=== PATIENT | male | born 1960 | race Caucasian/White ===

== ENCOUNTER → 2018-03-04 | Outpatient (CLI) | payer OTHER | LOC: M.RAD 11:33 | DX: M79.671 Pain in right foot (principal) ==

== ENCOUNTER → 2018-03-10 | Outpatient (CLI) | payer OTHER | LOC: M.ULTRA 15:00 | DX: R68.84 Jaw pain (principal); R22.0 Localized swelling, mass and lump, head ==

== ENCOUNTER → 2018-03-14 | Outpatient (CLI) | payer OTHER | LOC: M.CT 10:30 | DX: R59.9 Enlarged lymph nodes, unspecified (principal) ==

== ENCOUNTER → 2018-09-07 | Outpatient (CLI) | payer OTHER | LOC: M.CT 06:51 | DX: N20.0 Calculus of kidney (principal); K57.30 Diverticulosis of large intestine without perforation or abscess without bleeding; K40.20 Bilateral inguinal hernia, without obstruction or gangrene, not specified as recurrent; I70.0 Atherosclerosis of aorta; I72.3 Aneurysm of iliac artery; I10 Essential (primary) hypertension; E11.9 Type 2 diabetes mellitus without complications; G47.33 Obstructive sleep apnea (adult) (pediatric); M10.9 Gout, unspecified; E66.9 Obesity, unspecified; Z68.39 Body mass index [BMI] 39.0-39.9, adult; Z79.84 Long term (current) use of oral hypoglycemic drugs; Z82.49 Family history of ischemic heart disease and other diseases of the circulatory system; Z82.3 Family history of stroke; Z83.438 Family history of other disorder of lipoprotein metabolism and other lipidemia ==